=== PATIENT | female | born 1995 | race Two or more races ===

== ENCOUNTER 2021-03-16 15:44 | Emergency (ER) | payer OTHER ==
[~2021-03-16] VITALS: Ht 142.2 cm; Wt 72.6 kg
[2021-03-16 15:48] VITALS: BP 131/63
[2021-03-16] MEDS ORDERED: METHOCARBAMOL 500 MG TAB PO ONE (17:00)
[2021-03-16] MEDS ORDERED: IBUPROFEN 800 MG TAB PO ONE (17:00)
== END 2021-03-16 18:00 | disposition home or self-care (01) ==
LOC: ER 15:44 → EDBD 15:44 → ER 17:57
DX: R07.81 Pleurodynia (principal); R20.0 Anesthesia of skin
CPT/HCPCS: 71101